=== PATIENT | female | born 1935 | race Caucasian/White ===

== ENCOUNTER → 2017-11-06 | Outpatient (CLI) | payer OTHER ==
[2017-11-06] MEDS: PROPARACAINE 0.5% 15 ML OPH (10:35)
[2017-11-06] MEDS: PHENYLephrine 10% 5 ML OPH (10:35)
[2017-11-06] MEDS: OPHTHALMIC IRRIG SOLUTION 120 ML (10:35)
[2017-11-06] MEDS: TROPICAMIDE 1% 3 ML OPH (10:36)
[2017-11-06] MEDS: APRACLONIDINE 1% 0.1 ML OPH (10:36)
== END | disposition home or self-care (01) ==
LOC: RAD 09:57
DX: H25.042 Posterior subcapsular polar age-related cataract, left eye (principal)
CPT/HCPCS: 66821